=== PATIENT | female | born 1975 | race Caucasian/White ===

== ENCOUNTER → 2024-12-11 10:02 | Outpatient (BNVA) | payer OTHER, SELFPAY | PROVIDERS: Visit Provider Internal Medicine | DX: S13.9XXA Sprain of joints and ligaments of unspecified parts of neck, initial encounter (principal); W03.XXXA Other fall on same level due to collision with another person, initial encounter; M79.601 Pain in right arm | CPT/HCPCS: 72050; 73030; 99203 ==

== ENCOUNTER → 2024-12-13 07:37 | Outpatient (BNVA) | payer OTHER, SELFPAY | PROVIDERS: Visit Provider Internal Medicine | DX: M79.601 Pain in right arm (principal); M54.2 Cervicalgia; M25.511 Pain in right shoulder; Z91.81 History of falling | CPT/HCPCS: 99213 ==

== ENCOUNTER → 2024-12-18 10:30 | Outpatient (BNVA) | payer OTHER, SELFPAY | PROVIDERS: Visit Provider Internal Medicine | DX: M79.601 Pain in right arm (principal); Z91.81 History of falling | CPT/HCPCS: 99213 ==

== ENCOUNTER → 2025-01-03 07:48 | Outpatient (BNVA) | payer OTHER, SELFPAY | PROVIDERS: Visit Provider Internal Medicine | DX: M79.601 Pain in right arm (principal); Z02.79 Encounter for issue of other medical certificate | CPT/HCPCS: 99213 ==